=== PATIENT | female | born 1960 | race Caucasian/White ===

== ENCOUNTER → 2017-01-07 | Outpatient (CLI) | payer BC ==
[~2017-01-07] MED LIST: ALEV220T26 PO; AMLO5TAB2 PO; CALC600T57 PO; CENTTAB36 PO; ESTR1DIS TD; NAPR500T2 PO; PROG200C PO; vitamin; vitaminD
[2017-01-07 08:57] LABS: ANION GAP 7 MEQ/L (8-16); BLOOD UREA NITROGEN 15 MG/DL (7-18); CALCIUM LEVEL 8.8 MG/DL (8.5-10.1); CARBON DIOXIDE LEVEL 26 MEQ/L (21-32); CHLORIDE LEVEL 108 MEQ/L (98-107); CREATININE FOR GFR 0.76 MG/DL (0.55-1.02); GLOMERULAR FILTRATION RATE > 60.0 (>51); GLUCOSE, FASTING 100 MG/DL (70-105); POTASSIUM SERUM 4.3 MEQ/L (3.5-5.1); SODIUM LEVEL 141 MEQ/L (136-145)
--- NOTE | 2017-01-07 18:30 | ECGEPIP ---
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
== END ==
LOC: M LAB 08:04
PROVIDERS: ATTEND Anesthesiology
DX: Z01.818 Encounter for other preprocedural examination (principal); R03.0 Elevated blood-pressure reading, without diagnosis of hypertension; M17.11 Unilateral primary osteoarthritis, right knee

== ENCOUNTER 2017-01-11 09:30 | Day surgery (SDC) | payer BC ==
[~2017-01-11] VITALS: Ht 165.1 cm; Wt 111.1 kg
[2017-01-11] VITALS (7 sets, daily range): BP systolic 101–143; BP diastolic 53–77
[~2017-01-11 09:30] MED LIST changes: -CALC600T57 PO; -CENTTAB36 PO; +LIDOCAINE 2% INJ 100 MG/5 ML SDV (FOR ANES.) As Ordered ONE; +MIDAZOLAM INJ 2 MG/2 ML VIAL (J2250) As Ordered ONE; +ONDANSETRON 4MG/2ML VIAL (J2405) As Ordered ONE; +PROPOFOL 200 MG/20 ML VIAL As Ordered ONE; +ROCURONIUM BROMIDE 50 MG/5 ML VIAL As Ordered ONE; +dexameTHASONE 4 MG/ML 1ML VIAL (J1100) As Ordered ONE; +fentaNYL 100 MCG/2 ML INJECTION (J3010) As Ordered ONE; -vitamin; -vitaminD
[2017-01-11] MEDS ORDERED: LR 1,000 ML IV SCH ×3 (09:45→16:30)
[2017-01-11] MEDS ORDERED: vitaminD (09:57)
[2017-01-11] MEDS ORDERED: CALC600T57 PO (09:57)
[2017-01-11] MEDS ORDERED: vitamin (09:57)
[2017-01-11] MEDS ORDERED: CENTTAB36 PO (09:57)
[2017-01-11 10:15] LABS: MEAN CORPUSCULAR HGB CONC 33.5 g/dl (32.0-36.5); MEAN CORPUSCULAR VOLUME 92.6 fl (80.0-96.0); RED CELL DISTRIBUTION WIDTH 12.6 % (11.5-14.5); WHITE BLOOD COUNT 5.6 K/mm3 (4.0-10.0)
[2017-01-11] MEDS ORDERED: fentaNYL 100 MCG/2 ML INJECTION (J3010) As Ordered ONE (13:17)
[2017-01-11] MEDS ORDERED: ROCURONIUM BROMIDE 50 MG/5 ML VIAL As Ordered ONE ×2 (13:18→14:05)
[2017-01-11] MEDS ORDERED: HYDROmorphone HCL 2 MG/ML 1ML VIAL (J1170) As Ordered ONE (13:42)
[2017-01-11] MEDS ORDERED: GLYCOPYRROLATE INJ 0.2 MG/ML 2 ML VIAL As Ordered ONE (15:21)
[2017-01-11] MEDS ORDERED: NEOSTIGMINE 1MG/ML 5 ML SYRINGE (J2710) As Ordered ONE (15:21)
[2017-01-11] MEDS ORDERED: MORPHINE PCA 1MG/ML 100ML CADD As Ordered ONE (16:05)
[2017-01-11] MEDS ORDERED: MORPHINE 2 MG/ML 1ML SYRINGE IV PRN (16:30)
[2017-01-11] MEDS ORDERED: EPIDURAL/PCA KEYS XX PRN (16:30)
[2017-01-11] MEDS ORDERED: fentaNYL 100 MCG/2 ML INJECTION (J3010) IV PRN (16:30)
[2017-01-11] MEDS ORDERED: MORPHINE PCA 1MG/ML 100ML CADD IV PRN (16:30)
[2017-01-11] MEDS ORDERED: NALOXONE INJ 0.4 MG/1 ML VIAL (J2310) IV PRN (16:30)
[2017-01-11] MEDS ORDERED: IBUPROFEN 600 MG TAB PO PRN (16:30)
[2017-01-11] MEDS ORDERED: diphenhydrAMINE INJ 50MG/ML VIAL (J1200) IV PRN (16:30)
[2017-01-11] MEDS ORDERED: ONDANSETRON 4MG/2ML VIAL (J2405) IV PRN (16:30)
[2017-01-11] MEDS ORDERED: NALBUPHINE HCL 10 MG/ML AMP (J2300) IV PRN (16:30)
[2017-01-11] MEDS: LR 1,000 ML IV SCH (18:43)
[2017-01-12] VITALS: BP 110/57
[2017-01-12 04:00] VITALS: BP 113/61
[2017-01-12] MEDS: LR 1,000 ML IV SCH ×2 (04:09→08:43)
[2017-01-12] MEDS ORDERED: NORCO, ANEXSIA 5/325MG TABLET (HYDROcodone/ACETAMINOPHEN) PO PRN (06:00)
[2017-01-12 07:47] LABS: MEAN CORPUSCULAR HEMOGLOBIN 30.2 pg (27.0-33.0); MEAN CORPUSCULAR HGB CONC 32.8 g/dl (32.0-36.5); MEAN CORPUSCULAR VOLUME 92.2 fl (80.0-96.0); RED CELL DISTRIBUTION WIDTH 12.4 % (11.5-14.5); WHITE BLOOD COUNT 9.7 K/mm3 (4.0-10.0)
[2017-01-12 08:00] VITALS: BP 147/68
[2017-01-12] MEDS ORDERED: amLODIPine 5 MG TAB PO SCH (09:00)
[2017-01-12] MEDS ORDERED: BENAZEPRIL 5 MG TAB PO SCH (09:00)
[2017-01-12] MEDS ORDERED: BENA10TA PO (09:33)
[2017-01-12] MEDS ORDERED: NORCOTAB PO (09:38)
[2017-01-12] MEDS ORDERED: IBUP600T26 PO (09:38)
[2017-01-12 10:34] VITALS: BP 147/68
--- NOTE | 2017-01-12 11:17 | RO ---
DATE OF PROCEDURE: 01/11/2017 PREPROCEDURE DIAGNOSES/INDICATION FOR SURGERY: Menorrhagia, failed conservative efforts. POSTPROCEDURE DIAGNOSES: Menorrhagia, failed conservative efforts, multiple fibroids. PROCEDURE: Robotic-assisted hysterectomy with bilateral salpingo-oophorectomies. SURGEON: Erica Sheets MD MANAGER OF PMO: Felicia Lucas NP ANESTHESIA: General endotracheal anesthesia. BRIEF DESCRIPTION OF PROCEDURES AND FINDINGS: Leatha was brought to the operating room where sufficient general endotracheal anesthesia was induced. She was prepped, draped and positioned in the usual sterile fashion, the bladder emptied with the Moore with backfill. The cervix was grasped with single toothed tenaculum and then secured with #0 Vicryl suture, which was connected to the uterine manipulator. I had trouble getting into the uterine cavity. There was a great deal of scarring and some sort of obstruction, but we did not have any trouble connecting the green cup to the cervix or any of that portion of things. Attention was then turned to the abdomen where a transverse semilunar incision was made below the umbilicus. Sharp and blunt dissection were continued through the subcutaneous tissues to the level of the rectus fascia, which was carefully incised transversely, secured with #0 Vicryl retention sutures and the Tosha cannula placed into the peritoneal cavity. Initially there were some omental adhesions, but we did not have that much trouble taking those down. We were then able, with Trendelenburg, to visualize the uterus. We did have suboptimal manipulation of the uterus since the manipulator was not fully into the corpus, but we could also see that there were multiple distorting fibroids and some of those on the patient's right side pictured well. The pictures on the left side did not take well, but there were no pedunculated fibroids on the right side. There were distorting fibroids within the myometrium, giving a very bulky, globular shape on the left and a pedunculated fibroid on the right. Attention was then turned to the other ports with two left side and one right side port placed without difficulty. Then, with the patient in Trendelenburg, as usual, the robot was docked and we began the dissection. There were adhesions along the left side. We freed these up and again the uterus was very bulky and globular there. We did not have any difficulty freeing the infundibulum pelvic ligaments, which were cauterized and transected using the bipolar cautery and just cold scissors. We then dissected along the mesentery to the broad ligament, the round ligaments were cauterized and transected. The broad ligament on the left side was very much foreshortened due to the fibroids. Then the broad ligament was incised posteriorly. With some effort, we had the captain assistant use the tenaculum to elevate the uterus and try and get that pedunculated fibroid out of the way as well. Then, the bladder flap was created anteriorly. Again, backfilling the bladder as needed to confirm that we were well away from it. We were then able, with the tenaculum on the uterus, and then pressure on the green cup against the cervix to make the colpotomy posteriorly. We cauterized the uterine vasculature very carefully on both sides to control the bleeding. There were some extra blood vessels recruited by the fibroids, but not an alarming amount. We were then able to turn our attention to the anterior. With the bladder well away and the uterine vasculature controlled, we made a colpotomy in front as well and then worked this around to join the two incisions. Then delivered the uterus with some effort through the vagina. It weighed a little over 180 grams in the operating room. Not tremendously large but not tiny either. We then closed the cuff with two V-Loc sutures Each pedicle was carefully evaluated. There was good hemostasis. There was no evidence of injury to the bowel, bladder or ureters and no persistent bleeding and so the procedure was then ended. With the instruments removed, the CO2 was allowed to escape. The fascial wound at the umbilicus was closed with #0 Vicryl suture. The skin at each wound was closed with #3-0 Vicryl on a subcuticular stitch. Dry sterile dressings were then applied. Estimated blood loss for the procedure about 75 mL. Fluid replacement was crystalloid. Complications: None. Condition and Disposition: Leatha tolerated the procedure well and was recovering in the recovery room in good condition.
== END 2017-01-12 10:45 | disposition home or self-care (01) ==
LOC: M SDC 09:30 → M PED 16:47 → M SDC 01-12 10:45
PROVIDERS: ATTEND Obstetrics & Gynecology
DX: N92.0 Excessive and frequent menstruation with regular cycle (principal); I10 Essential (primary) hypertension; F17.210 Nicotine dependence, cigarettes, uncomplicated; Z79.899 Other long term (current) drug therapy
CPT/HCPCS: 36415; 58571; 85027; 86850; 86900; 86901; 88309; J0690; J1100; J1170; J2250; J2405; J2710; J3010